=== PATIENT | male | born 1980 | race Two or more races ===

== ENCOUNTER 2018-06-11 17:05 | Emergency (ER) | payer MEDICAID ==
[~2018-06-11] VITALS: Ht 175.3 cm; Wt 70.0 kg
[2018-06-11 18:05] VITALS: BP 179/91
== END 2018-06-11 18:16 | disposition left against medical advice (07) ==
LOC: ER 17:05
DX: K62.89 Other specified diseases of anus and rectum (principal); Z88.0 Allergy status to penicillin; Z88.6 Allergy status to analgesic agent
CPT/HCPCS: 99281